=== PATIENT | female | born 1990 | race Caucasian/White ===

== ENCOUNTER → 2016-12-01 | Outpatient (CLI) | payer OTHER ==
[2016-12-01 17:05] LABS: ABSOLUTE EOSINOPHILS # (AUTO) 0.1 10^3/uL (0.0-0.6); ABSOLUTE LYMPHOCYTES (AUTO) 2.5 10^3/uL (0.5-4.7); ABSOLUTE MONOCYTES (AUTO) 0.4 10^3/uL (0.1-1.4); ABSOLUTE NEUT (AUTO) 4.1 10^3/uL (1.7-8.2); BASOPHILS % (AUTO) 0.4 % (0-2); EOSINOPHILS % (AUTO) 1.2 % (0-6); HEMATOCRIT 37.7 % (36.0-47.0); HEMOGLOBIN 13.1 g/dL (12.0-15.5); HGB HCT DIFFERENCE 1.6; LYMPHOCYTES % (AUTO) 35.4 % (13-45); MEAN CORPUSCULAR HEMOGLOBIN 31.9 pg (27.0-33.4); MEAN CORPUSCULAR HGB CONC 34.8 g/dL (32.0-36.0); MEAN CORPUSCULAR VOLUME 92 fl (80-97); MONOCYTES % (AUTO) 5.2 % (3-13); RED BLOOD COUNT 4.12 10^6/uL (3.72-5.28); RED CELL DISTRIBUTION WIDTH 12.9 % (11.5-14.0); SEGMENTED NEUTROPHILS % (AUTO) 57.8 % (42-78); WHITE BLOOD COUNT 7.1 10^3/uL (4.0-10.5)
[2016-12-01 17:53] LABS: ERYTHROCYTE SEDIMENTATION RATE 10 mm/hr (0-20)
[2016-12-06 08:04] LABS: DEAMIDATED GLIADIN IGA AB 3 units (0-19); DEAMIDATED GLIADIN IGG AB 2 units (0-19); IMMUNOGLOBULIN A 2 176 mg/dL (87-352); T-TRANSGLUTAMINASE (TTG) IGG <2 U/mL (0-5)
== END ==
LOC: OD 16:00
PROVIDERS: ATTEND Specialist
DX: K58.0 Irritable bowel syndrome with diarrhea (principal)
CPT/HCPCS: 36415; 83520; 85025; 85652; 86140; 86256

== ENCOUNTER → 2017-01-20 | Outpatient (CLI) | payer OTHER ==
--- NOTE | 2017-01-20 08:51 | RADIOLOGY REPORT (SQ) ---
EXAM DESCRIPTION: U/S ABDOMEN LIMITED W/O DOP COMPLETED DATE/TIME: 01/20/2017 8:25 am REASON FOR STUDY: ABD PAIN (R10.9) R10.9 UNSPECIFIED ABDOMINAL PAIN COMPARISON: None. TECHNIQUE: Dynamic and static grayscale images acquired of the abdomen and recorded on PACS. Additio nal selected color Doppler and spectral images recorded. LIMITATIONS: None. FINDINGS: PANCREAS: No masses. Visualized pancreatic duct normal caliber. LIVER: There is a small simple cyst in the right lobe of the liver. Largest diameter is 2.1 cm. LIVER VASCULATURE: Normal directional flow of the main portal vein and hepatic veins. GALLBLADDER: No stones. Normal wall thickness. No pericholecystic fluid. ULTRASOUND-DETECTED JOSÉ'S SIGN: Negative. INTRAHEPATIC DUCTS AND COMMON DUCT: CBD and intrahepatic ducts normal caliber. No filling defects. INFERIOR VENA CAVA: Normal flow. AORTA: No aneurysm. RIGHT KIDNEY: Normal size. Normal echogenicity. No solid or suspicious masses. No hydronephrosis. No calcifications. PERITONEAL AND RIGHT PLEURAL SPACE: No ascites or effusions. OTHER: No other significant findings. IMPRESSION: Small hepatic cysts otherwise negative right upper quadrant ultrasound. TECHNICAL DOCUMENTATION: JOB ID: [id number] [employer]- All Rights Reserved
== END ==
LOC: RAD 07:23
PROVIDERS: ATTEND Specialist
DX: R10.9 Unspecified abdominal pain (principal); K76.89 Other specified diseases of liver
CPT/HCPCS: 76705

== ENCOUNTER 2017-01-21 10:30 | Day surgery (SDC) | payer OTHER ==
--- NOTE | 2017-01-19 12:36 | HISTORY AND PHYSICAL E ---
History and Physical NAME: RADHA ELDRIDGE : 1990 AGE: 26Y ADMITTED: 01/21/2017 ROOM: REFERRING: [facility]. HISTORY: A 26-year-old female with diarrhea, IBS, lower abdominal pain, presented regarding colonoscopy. She does have watery diarrhea 3 times a day at times. SOCIAL HISTORY: . Does not smoke. She drinks rarely. SURGERIES: 1. Bilateral knee surgery. 2. Tonsillectomy. REVIEW OF SYSTEMS: HEENT: Eyeglasses. RESPIRATORY: Negative. CARDIAC: Negative. ENDOCRINE: Negative. GASTROINTESTINAL: Diarrhea, abdominal pain, occasional constipation. NEUROPSYCHIATRIC: At times, she is under stress. FAMILY HISTORY: Father is alive, has history of diabetes. Mom is alive, history of diabetes. PHYSICAL EXAMINATION: GENERAL: A 26-year-old female. VITAL SIGNS: Blood pressure is 110/60, pulse 60, respirations 18, temp is 98. HEENT: Normal. NECK: Supple. LUNGS: Clear. ABDOMEN: Soft. NEUROLOGIC: Negative. MEDICATIONS: No medications mentioned by the patient. LABORATORY: Sed rate is normal at 10. Serology for IBD shows as follows: Cerevisiae IgG is positive 34, differentiated between Crohn's disease versus ulcerative colitis. The patient's celiac disease results are negative. She has negative celiac disease by serology. CONCLUSION: Diarrhea, etiology undetermined. Serology positive for IBD, negative for celiac disease. PLAN: Colonoscopy and biopsy. DICTATING PHYSICIAN: JOSIE TONEY M.D. [id number] PHY#: [id number] ID: [id number] JOB#: [id number] ACCT: [id number] cc:[facility] JOSIE TONEY M.D. >
[~2017-01-21 10:30] MED LIST: EPINEPHRINE INJ 1 MG/10 ML DISP.SYRIN ONE; FENTANYL CITRATE INJ/PF 100 MCG/2 ML AMPUL ONE; FLUMAZENIL INJ 0.5 MG/5 ML VIAL ONE; GLUCAGON,HUMAN RECOMB 1 MG INJ ONE; GLYCOPYRROLATE INJ 0.4 MG/2 ML VIAL ONE; LIDOCAINE 2% JELLY 30 ML TUBE ONE; NALOXONE HCL INJ/PF 0.4 MG/1 ML SDV ONE; ONDANSETRON HCL INJ/PF 4 MG/2 ML SDV ONE
[2017-01-21] MEDS: MIDAZOLAM 2 MG/2 ML INJ ONE ×3 (11:08→11:15)
[2017-01-21] MEDS ORDERED: MIDAZOLAM 2 MG/2 ML INJ ONE (12:04)
[2017-01-21 12:31] VITALS: BP 113/67
[2017-01-21 12:31] LABS: ABSOLUTE EOSINOPHILS # (AUTO) 0.1 10^3/uL (0.0-0.6); ABSOLUTE LYMPHOCYTES (AUTO) 1.9 10^3/uL (0.5-4.7); ABSOLUTE MONOCYTES (AUTO) 0.4 10^3/uL (0.1-1.4); ABSOLUTE NEUT (AUTO) 3.1 10^3/uL (1.7-8.2); BASOPHILS % (AUTO) 0.4 % (0-2); HEMATOCRIT 35.8 % (36.0-47.0); HEMOGLOBIN 12.9 g/dL (12.0-15.5); HGB HCT DIFFERENCE 2.9; LYMPHOCYTES % (AUTO) 35.1 % (13-45); MEAN CORPUSCULAR HEMOGLOBIN 31.5 pg (27.0-33.4); MEAN CORPUSCULAR HGB CONC 36.1 g/dL (32.0-36.0); MEAN CORPUSCULAR VOLUME 87 fl (80-97); MONOCYTES % (AUTO) 7.5 % (3-13); RED CELL DISTRIBUTION WIDTH 12.5 % (11.5-14.0); WHITE BLOOD COUNT 5.5 10^3/uL (4.0-10.5)
[2017-01-21 13:11] LABS: ERYTHROCYTE SEDIMENTATION RATE 10 mm/hr (0-20)
--- NOTE | 2017-01-24 14:05 | DISCHARGE SUMMARY E ---
Discharge Summary NAME: RADHA ELDRIDGE : 1990 AGE: 26Y ADMITTED: 01/21/2017 DISCHARGED: 01/21/2017 PROCEDURE: Colonoscopy, biopsy. FINAL DIAGNOSES: 1. External hemorrhoids. 2. Diarrhea, etiology undetermined. HISTORY: A 26-year-old female with diarrhea and abdominal pain. Underwent colonoscopy. It shows no gross abnormalities. No evidence of Crohn or ulcerative colitis. She did have mild external hemorrhoids. Biopsy obtained of cecum. DISCHARGE PLAN: Hold aspirin and nonsteroidal 5 days. We will obtain lab study to rule out Crohn's disease. I will do CRP, CBC, sed rate, serology for IBD. Awaiting biopsy results. Patient to see us in the office in the next few days. Discharge soft low residue diet. Follow up office visit in the next few days. DICTATING PHYSICIAN: JOSIE TONEY M.D. [id number] PHY#: [id number] ID: [id number] JOB#: [id number] ACCT: [id number] cc:[facility] JOSIE TONEY M.D. >
--- NOTE | 2017-01-24 14:26 | OPERATIVE REPORT E ---
Operative Report NAME: RADHA ELDRIDGE : 1990 AGE: 26Y DATE OF SURGERY: 01/21/2017 ROOM: PREOPERATIVE DIAGNOSES: 1. Diarrhea. 2. Lower abdominal pain. POSTOPERATIVE DIAGNOSIS: External hemorrhoids, mild. PROCEDURE: Colonoscopy. SURGEON: JOSIE TONEY M.D. TISSUE REMOVED OR ALTERED: Biopsy cecum. ANESTHESIA: Versed 4, fentanyl 200. DESCRIPTION: Rectal exam shows mild external hemorrhoids. Rectum, sigmoid descending colon normal. Transverse colon normal. Ascending colon normal. Cecum normal. Biopsy obtained for probable microscopic colitis. I tried to intubate the terminal ileum unsuccessfully. Orifice of the appendix visualized. I could not intubate the ileum. Scope withdrawn from cecum, ascending, transverse, descending, sigmoid all the way to the rectum. CONCLUSION: 1. Diarrhea, etiology undetermined. 2. External hemorrhoids. PLAN: Awaiting biopsy. I will obtain serology for inflammatory bowel disease. DICTATING PHYSICIAN: JOSIE TONEY M.D. [id number] PHY#: [id number] ID: [id number] JOB#: [id number] ACCT: [id number] cc:[facility] JOSIE TONEY M.D. >
== END 2017-01-21 12:40 | disposition home or self-care (01) ==
LOC: END 10:30
PROVIDERS: ATTEND Specialist
PROC: 0DBH8ZX Excision of Cecum, Via Natural or Artificial Opening Endoscopic, Diagnostic (ICD-10-PCS; principal; 2017-01-21 11:00)
DX: K58.0 Irritable bowel syndrome with diarrhea (principal); K64.4 Residual hemorrhoidal skin tags; R19.7 Diarrhea, unspecified
CPT/HCPCS: 45380; 86256; 36415; 85025; 85652; 86140; 88305 ×2; J2250; J3010; J2405; J0171; J1610; J2310; J3490